=== PATIENT | male | born 1965 | race Caucasian/White ===

== ENCOUNTER 2016-09-20 06:02 | Emergency (ER) | payer MEDICAID ==
[~2016-09-20 06:02] MED LIST: ADVAIR HFA 115/1 AER IH; EFFEXOR-XR75 MG PO; LAC PO; LEVAQUIN750 MG PO; NEU300 PO; NORCO1 TA2 PO; PREDNISONE20 MG PO; PROVENTIL0.09 MG/A1 INH; ZESTRIL5 MG PO
[2016-09-20 08:01] VITALS: BP 139/94
== END 2016-09-20 08:01 | disposition home or self-care (01) ==
LOC: ED 06:02
DX: M23.8X1 Other internal derangements of right knee (principal); I10 Essential (primary) hypertension; J44.9 Chronic obstructive pulmonary disease, unspecified; E78.00 Pure hypercholesterolemia, unspecified; F31.9 Bipolar disorder, unspecified; Z86.79 Personal history of other diseases of the circulatory system
CPT/HCPCS: Q0092

== ENCOUNTER 2017-05-30 10:36 | Emergency (ER) | payer MEDICAID ==
[~2017-05-30] VITALS: Ht 175.3 cm; Wt 88.9 kg
[2017-05-30 10:43] VITALS: Ht 175.3 cm; Wt 88.9 kg
[2017-05-30 12:21] VITALS: BP 152/71
== END 2017-05-30 12:21 | disposition home or self-care (01) ==
LOC: ED 10:36
DX: S80.01XA Contusion of right knee, initial encounter (principal); Z88.0 Allergy status to penicillin; W20.8XXA Other cause of strike by thrown, projected or falling object, initial encounter; Y93.89 Activity, other specified; Y92.89 Other specified places as the place of occurrence of the external cause; Y99.8 Other external cause status
CPT/HCPCS: J1885

== ENCOUNTER 2017-10-27 12:10 | Emergency (ER) | payer MEDICAID ==
[~2017-10-27] VITALS: Ht 170.2 cm; Wt 92.1 kg
[2017-10-27 12:26] VITALS: Ht 170.2 cm; Wt 92.1 kg
[2017-10-27 13:11] VITALS: BP 139/93
== END 2017-10-27 15:10 | disposition home or self-care (01) ==
LOC: ED 12:10
DX: M70.21 Olecranon bursitis, right elbow (principal); J44.9 Chronic obstructive pulmonary disease, unspecified; I10 Essential (primary) hypertension; E78.00 Pure hypercholesterolemia, unspecified; Z88.0 Allergy status to penicillin
CPT/HCPCS: J2001